=== PATIENT | male | born 1975 | race Caucasian/White ===

== ENCOUNTER → 2018-10-25 15:15 | Outpatient (CLI) | payer OTHER, MEDICAID, SELFPAY ==
--- NOTE | 2018-10-25 | DI.CT.S_ITS ---
PROCEDURE: CT CHEST HIGH RESOLUTION INDICATIONS: Pulmonary fibrosis, unspecified. TECHNIQUE: Noncontrast 1.0 and 5.0 mm thick contiguous axial sections from the pulmonary apex to the posterior costophrenic angles, with 7 mm thick coronal and sagittal MIP reformats. 1 mm thick dynamic expiratory images acquired through the upper, mid, and lower lungs. 1.0 mm thick axial sections acquired from the junaid to the posterior costophrenic angles in the prone end-inspiration position. For radiation dose reduction, the following was used: automated exposure control, adjustment of mA and/or kV according to patient size. COMPARISON: [facility], , CHEST 2VW, 08/03/2014, 17:08. FINDINGS: Image quality: Excellent. Lungs: At each lung base there is a combination of alveolitis and pulmonary fibrosis greater on the left than the right. Additionally, at the lateral left lung base on series 7 image 279 there is a 7 mm nodule, within the area of airspace disease. This is noncalcified. The airspace disease pattern extends cephalad and diminishes as the upper lobes are approached. Bronchiectasis is not present. Mild chronic appearing bronchitis is present as indicated by a slight degree of marisela-bronchial soft tissue prominence over the mid and lower lungs. Pleura: No pleural effusions or pneumothorax. Mediastinum: Heart size is normal. No pericardial effusion. Thoracic aorta and central pulmonary arteries are normal in size. Esophagus is normal in caliber. Bones and chest wall: No suspicious bony lesions. No vertebral body compression fractures. Abdomen: Visualized upper abdominal solid organs and bowel loops appear normal. IMPRESSION: Recommend obtaining two-view chest plain films for comparison to the prior most recent available 2 view chest plain films from 08/03/14. This will allow accurate assessment for presence or absence of interval worsening of the pattern of alveolitis and pulmonary fibrosis currently found. There is an unexpected finding of a 7 mm pulmonary nodule at the lateral left lung base within the area of alveolitis and pulmonary fibrosis. This structure requires followup, and in this clinical circumstance there is a significant potential for early malignancy as cause of this appearance. Therefore these consider obtaining a nuclear medicine PET CT scan for solitary pulmonary nodule followup. Dictated by: Abraham Eduardo M.D. on 10/25/2018 at 16:19 Approved by: Abraham Eduardo M.D. on 10/25/2018 at 16:25
== END ==
PROVIDERS: Family Provider Family Medicine; Visit Provider Internal Medicine
DX: J84.10 Pulmonary fibrosis, unspecified (principal); R91.1 Solitary pulmonary nodule
CPT/HCPCS: 71250

== ENCOUNTER 2020-03-06 19:29 | Emergency (ER) | payer OTHER, SELFPAY ==
[2020-03-06 19:35] VITALS: BP 112/76; PULSE 82; RESP 15; TEMP 36.7; O2SAT 98; BMI 25.7
--- NOTE | 2020-03-06 19:40 | DI.RAD.S_ITS ---
PROCEDURE: XR HAND RT MIN 3V INDICATIONS: hit hand on pole, increase pain and swelling TECHNIQUE: 3 views of the hand(s) acquired. COMPARISON: None. FINDINGS: Bones: There is irregularity within the distal phalanx of the 2nd digit, seen only on one view. Soft tissues: No suspicious soft tissue calcifications. IMPRESSION: Distal 2nd digit phalanx irregularity seen only on one view. This could be artifact recommend correlation point tenderness if concern for fracture persists. Dictated by: Zena Nieto M.D. on 03/06/2020 at 19:54 Approved by: Zena Nieto M.D. on 03/06/2020 at 19:57
--- NOTE | 2020-03-06 20:51 | DI.RAD.S_ITS ---
PROCEDURE: XR WRIST RT MIN 3V INDICATIONS: wrist and forearm pain, s/p struck a pole with lateral hand TECHNIQUE: 3 views of the wrist were acquired. COMPARISON: , CR, XR HAND RT MIN 3V, 03/06/2020, 19:31. , CT, CT CHEST HIGH RESOLUTION, 10/25/2018, 15:26. , CR, WRIST MINIMUM 3 VIEWS RIGHT, 05/17/2016, 22:50. FINDINGS: Bones: No fractures or dislocations. No suspicious bony lesions. Scaphoid view: No definitive fracture. Small areas of cystic change are noted within the scaphoid, unchanged. Soft tissues: No suspicious soft tissue calcifications. IMPRESSION: No visualized acute fracture or dislocation. However, if clinical concern and/or pain persist, short interval imaging followup in 7-10 days is recommended, as occult injury cannot be definitively excluded. Dictated by: Zena Nieto M.D. on 03/06/2020 at 21:05 Approved by: Zena Nieto M.D. on 03/06/2020 at 21:06
--- NOTE | 2020-03-06 20:54 | ED_ITS ---
HPI - Extremity Injury (Upper) <ABA Lopez - Last Filed: 03/06/20 21:28> General Chief Complaint: Extremity Injury, Upper Stated Complaint: rt hand pain, swelling Time Seen by Provider: 03/06/20 20:00 Source: patient Mode of arrival: Ambulatory Limitations: no limitations History of Present Illness HPI narrative: This is a 44 year male, smoker, who has history of several wrist injuries and fracture repair presents to ED with right dominant hand wrist pain. Initially he had injured his wrist about 8 days ago after he intentionally chopped a pole. Patient reports after 4 days swelling and pain had improved until yesterday he slapped the affected hand to get up and recurring severe pain in right lateral wrist. Now he feels pain across the right wrist especially with movements including flexion extension and deviation. With movements pain radiates up to forearm. Patient reports intact sensation distally. He is able to move his all fingers. Patient denies any open skin injuries. He reports no pain medication including Motrin or Tylenol last 48 hours. Related Data Allergies Allergy/AdvReac Type Severity Reaction Status Date / Time cyclobenzaprine Allergy Unknown Unverified 10/07/17 12:12 [From FLEXERIL] lactose Allergy Unknown Unverified 10/07/17 12:12 wheat Allergy Unknown Unverified 10/07/17 12:12 oxycodone AdvReac Mild ANGER Unverified 10/07/17 12:12 pseudoephedrine AdvReac Mild CRAZY Unverified 10/07/17 12:12 DAIRY Allergy Unknown Uncoded 10/07/17 12:12 From SUDAFED Allergy Unknown CRAZY Uncoded 10/07/17 12:12 OXYCODONE Allergy Unknown ANGER Uncoded 10/07/17 12:12 WHEAT Allergy Unknown Uncoded 10/07/17 12:12 Review of Systems <ABA Lopez - Last Filed: 03/06/20 21:28> Review of Systems Narrative: General: Denies fever, chills, fatigue, malaise, sweats. Respiratory: Denies dyspnea, cough, wheezing, hemoptysis, sputum. Cardiovascular: Denies chest pain, palpitations, orthopnea, edema. Musculoskeletal: See HPI Skin: Denies rash, skin lesions, or other. Patient History <ABA Lopez - Last Filed: 03/06/20 21:28> Medical History Emphysema lung (Acute) Wrist fracture (Acute) Surgical History H/O inguinal hernia repair (Acute) Social History Smoking Status: Current every day smoker alcohol intake: never substance use type: does not use Substance Use Type: does not use Exam <ABA Lopez - Last Filed: 03/06/20 21:28> Narrative Exam Narrative: General appearance: well developed, well nourished, in no acute distress. Head: normocephalic, atraumatic, no scalp lesions, non-tender. ENT: Hearing grossly intact. Airway patent. Neck/Thyroid: neck supple, full range of motion, no visible masses or meningeal signs. No JVD, non-tender without lymphadenopathy. Skin: no suspicious rashes, lesions over visible areas. Warm and dry and appropriate color for ethnicity. Heart: no clubbing, no cyanosis, no edema. Lungs: Breathing even and unlabored. No stridor. No accessory muscles used. Able to speak in full sentences. Chest: normal shape and expansion. Abdomen: non-obese, non-distended. Neurologic: alert and oriented. Cognitive exam, ORTHOPHOTOGRAPHY TECHNICIAN and PNS grossly intact on informal exam. Psych: good eye contact, normal affect. Initial Vital Signs Initial Vital Signs: Vital Signs Temperature 98.0 F 03/06/20 19:35 Pulse Rate 82 03/06/20 19:35 Respiratory Rate 15 03/06/20 19:35 Blood Pressure 112/76 03/06/20 19:35 Pulse Oximetry 98 03/06/20 19:35 Extrem Right upper extremity: elbow/forearm Details: normal ROM; no tenderness and no swelling, wrist Details: tenderness Location: of the distal radius and of the distal ulna, swelling Location: of the dorsal wrist, normal ROM, normal vascular exam and radial pulse present; no unusual warmth, no lacerations and no deformity and hand Details: normal to inspection, normal capillary refill, neuromotor exam normal, neurosensory exam normal, tendon exam normal, vascular exam Details: radial pulse present and normal capillary refill and normal ROM of fingers <Thad Saleh DO - Last Filed: 03/07/20 02:51> Initial Vital Signs Initial Vital Signs: Vital Signs Temperature 98.0 F 03/06/20 19:35 Pulse Rate 82 03/06/20 19:35 Respiratory Rate 15 03/06/20 19:35 Blood Pressure 112/76 03/06/20 19:35 Pulse Oximetry 98 03/06/20 19:35 Procedures <Wes Yu TAR HEATER OPERATOR Last Filed: 03/06/20 21:28> Orthopedic Splinting/Casting Injury #1: Side: right Upper Extremity Injury Location: wrist Upper Extremity Immobilizer: thumb spica (prefabricated) Post splinting neuro exam: intact Post splinting vascular exam: intact Placed by: Nursing Scores <Wes LopezABA soto Filed: 03/06/20 21:28> ABCD2 Citation: Lancet. 2006Jul 25;369(3578):759-34. Validation and refinement of scores to predict very early stroke risk after transient ischaemic attack. Chuck SC1, Paulino PM, Eddie MN, Adiel MF, Jordan JS, Dawn AL, Koffi S. GCS Chaim coma scale eye opening: Spontaneous Chaim coma scale verbal response: Orientated [facility] coma scale motor response: Obey commands [facility] coma scale total score: 15 Course <Wes Yu TAR HEATER OPERATOR Last Filed: 03/06/20 21:28> Orders Ordered: ED Orders 03/06/20 19:40 XR hand RT min 3V Stat 03/06/20 20:51 XR wrist RT min 3V Stat Vital Signs Vital signs: Vital Signs - 8 hr 03/06/20 19:35 03/06/20 21:26 Temperature 98.0 F Pulse Rate 82 70 Respiratory Rate 15 Blood Pressure 112/76 134/90 Pulse Oximetry 98 95 <Thad Saleh DO - Last Filed: 03/07/20 02:51> Orders Ordered: ED Orders 03/06/20 19:40 XR hand RT min 3V Stat 03/06/20 20:51 XR wrist RT min 3V Stat Vital Signs Vital signs: Vital Signs - 8 hr 03/06/20 19:35 03/06/20 21:26 Temperature 98.0 F Pulse Rate 82 70 Respiratory Rate 15 Blood Pressure 112/76 134/90 Pulse Oximetry 98 95 MDM - Extremity Injury (Upper) <ABA Lopez - Last Filed: 03/06/20 21:28> Differential Diagnosis Differential diagnosis: Likely fracture of hand and other (Wrist fracture, wrist strain, hand sprain) Medical Records Attestation: I reviewed the patient's medical records. Imaging Data XR-Hand RT: Radiologist's Impression: [address] [address] XRay Report Signed Patient: Vimal Pederson RMR#: [id number] : 1975Acct:[id number] Age/Sex: 44 / MDate of Service: 03/06/20 Loc: ED Accession Number: [id number] Procedure: XR hand RT min 3V Ordering Provider: Thad Saleh D.O. PROCEDURE: XR HAND RT MIN 3V INDICATIONS: hit hand on pole, increase pain and swelling TECHNIQUE: 3 views of the hand(s) acquired. COMPARISON: None. FINDINGS: Bones: There is irregularity within the distal phalanx of the 2nd digit, seen only on one view. Soft tissues: No suspicious soft tissue calcifications. IMPRESSION: Distal 2nd digit phalanx irregularity seen only on one view. This could be artifact recommend correlation point tenderness if concern for fracture persists. Dictated by: Zena Nieto M.D. on 03/06/2020 at 19:54 Approved by: Zena Nieto M.D. on 03/06/2020 at 19:57 XR-Wrist LT: Radiologist's Impression: [address] [address] XRay Report Signed Patient: Vimal Pederson RMR#: [id number] : 1975Acct:[id number] Age/Sex: 44 / MDate of Service: 03/06/20 Loc: ED Accession Number: [id number] Procedure: XR wrist RT min 3V Ordering Provider: Wes Yu PROCEDURE: XR WRIST RT MIN 3V INDICATIONS: wrist and forearm pain, s/p struck a pole with lateral hand TECHNIQUE: 3 views of the wrist were acquired. COMPARISON: [facility], CR, XR HAND RT MIN 3V, 03/06/2020, 19:31. [facility], CT, CT CHEST HIGH RESOLUTION, 10/25/2018, 15:26. [facility], CR, WRIST MINIMUM 3 VIEWS RIGHT, 05/17/2016, 22:50. FINDINGS: Bones: No fractures or dislocations. No suspicious bony lesions. Scaphoid view: No definitive fracture. Small areas of cystic change are noted within the scaphoid, unchanged. Soft tissues: No suspicious soft tissue calcifications. IMPRESSION: No visualized acute fracture or dislocation. However, if clinical concern and/or pain persist, short interval imaging followup in 7-10 days is recommend ed, as occult injury cannot be definitively excluded. Dictated by: Zena Nieto M.D. on 03/06/2020 at 21:05 Approved by: Zena Nieto M.D. on 03/06/2020 at 21:06 MDM Narrative Medical decision making narrative: X-ray test today does not show fractures or dislocation as acute findings on right wrist and hand. Patient states in the past other fractures in his hand and wrist did not show up easily on x-ray test. Distal sensation and cap refill with radial pulses are intact with mobility in his fingers and wrist. Advised patient to follow with primary care physician if pain persist longer than 10-14 days. Velcro thumb spica splint has been applied on affected hand or immobilization and support. Advised to use RICE therapy and [id number] Tylenol and or Motrin as needed for discomfort. Return precautions were discussed with patient and patient verbalized understanding in agreement with treatment plan. Discharge Plan Departure Patient Disposition: Home Clinical Impression: Right wrist sprain Qualifiers: Encounter type: initial encounter Qualified Code(s): S63.501A - Unspecified sprain of right wrist, initial encounter Discharge Date/Time: 03/06/20 22:05 Instructions: DI for Wrist Sprain Activity Restrictions/Additional Instructions: You have been diagnosed with [wrist sprain. No acute findings in x-rays on her hand and wrist. Use provided prefabricated splint for pain and immobilization for next week or 2. ]. What to do: *Take your medications as directed. Please take [id number] Tylenol and or Motrin as needed for discomfort. Tylenol 650-1000 mg as needed for pain. Ibuprofen 400-600 mg up to 3 to 4 times a day as needed for pain with food to decrease GI irritation. Use cool pack and elevated affected hand next 24-48 hours for inflammation, swelling, pain. *Follow up with your primary care provider in 2-3 days, call for an appointment. Let them know you were seen in the ED and that we asked you to be seen in follow up. If pain persists greater than 2 weeks, please follow-up with her primary care physician for possible reimaging test. *Return to ED if you have any new, worsening, or concerning symptoms, such as [worsening pain, tingling/numbness/weakness to affected arm, chest pain, breathing difficulty, unable to tolerate fluids, or any acute concerns]. Referrals: Inocente Rod MD [Primary Care Provider] - <Thad Saleh DO - Last Filed: 03/07/20 02:51> [facility] Vasquezature Attestation: I was immediately available in the department for consultation. This documentation has been reviewed and I agree with assessment and plan. Supervised by Thad Saleh DO
[2020-03-06 21:26] VITALS: BP 134/90; PULSE 70; O2SAT 95
== END 2020-03-06 22:05 | disposition home or self-care (01) ==
PROVIDERS: Emergency Provider Nurse Practitioner Family; Family Provider Family Medicine; PCP Family Medicine
DX: S63.501A Unspecified sprain of right wrist, initial encounter (principal); W22.8XXA Striking against or struck by other objects, initial encounter
CPT/HCPCS: 73110; 73130; 99283

== ENCOUNTER → 2023-09-20 17:01 | Outpatient (CLI) | payer OTHER, SELFPAY ==
[2023-09-20 17:49] LABS: Influenza A - CEPHEID Flu A NEGATIVE (NEGATIVE); Influenza B - CEPHEID Flu B NEGATIVE (NEGATIVE); Respiratory Syncytial Virus Negative (Negative)
[2023-09-20 17:51] LABS: COVID-19 CEPHEID 4-PLEX PCR Negative (Negative)
== END ==
PROVIDERS: Family Provider Family Medicine; PCP Family Medicine; Visit Provider Nurse Practitioner Family
DX: J02.9 Acute pharyngitis, unspecified (principal); R05.9 Cough, unspecified
CPT/HCPCS: 0241U; 87070

== ENCOUNTER → 2023-09-20 17:05 | Outpatient (CLI) | payer OTHER, SELFPAY ==
--- NOTE | 2023-09-20 17:07 | DI.RAD.S_ITS ---
PROCEDURE: XR CHEST 2V INDICATIONS: Cough TECHNIQUE: 2 views of the chest were acquired. COMPARISON: [facility], CR, XR CHEST 2 VIEWS, 05/16/2022, 13:21. FINDINGS: Surgical changes and devices: None. Lungs and pleura: There is mild pulmonary vascular congestion. Ill-defined airspace opacity in left lower lung field is seen suggestive of left lower lobe infiltrate versus atelectasis. Increased interstitial lung markings are noted bilaterally concerning for pulmonary edema. No pneumothorax. No significant pleural effusion. Mediastinum: Mediastinal contours are normal. Heart size is normal. Bones and chest wall: No suspicious bony abnormalities. Soft tissues appear unremarkable. IMPRESSION: Finding is suggestive of small to moderate size left lower lobe infiltrate versus atelectasis. No significant pleural effusion or pneumothorax. Mild pulmonary edema. Dictated by: Hang Case M.D. on 09/21/2023 at 13:13 Approved by: Hang Case M.D. on 09/21/2023 at 13:14
== END ==
LOC: RAD 17:06
PROVIDERS: Family Provider Family Medicine; PCP Family Medicine; Referring Provider Nurse Practitioner Family; Visit Provider Nurse Practitioner Family
DX: J02.9 Acute pharyngitis, unspecified (principal); J81.1 Chronic pulmonary edema; R05.9 Cough, unspecified
CPT/HCPCS: 0241U; 71046; 87070; 87077; 87185